=== PATIENT | male | born 1985 | race Caucasian/White ===

== ENCOUNTER 2017-01-01 05:51 | Emergency (ER) | payer OTHER ==
[2017-01-01 06:35] LABS: BASOPHIL# 0.3 X 10^3uL (0.0-0.1); BASOPHILS 2.3 % (0.0-2.0); EOSINOPHILS 0.4 % (0.0-6.0); EOSINOPHILS# 0.1 X 10^3uL (0.0-0.4); HEMATOCRIT 45.8 % (42.0-54.0); HEMOGLOBIN 15.6 g/dL (14.0-18.0); LYMPHOCYTES 17.4 % (20.0-40.0); LYMPHOCYTES# 2.4 X 10^3uL (0.8-3.8); MEAN CELL VOLUME 78.8 fL (80.0-100.0); MEAN CORPUS. HGB CONCENTRATION 34.1 g/dL (32.0-36.0); MEAN CORPUSCULAR HEMOGLOBIN 26.9 pg (29.0-35.0); MEAN PLATELET VOLUME 8.4 fL (7.4-10.4); MONOCYTES 9.2 % (2.0-10.0); MONOCYTES# 1.3 X 10^3uL (0.2-1.0); NEUTROPHILS 70.7 % (54.0-75.0); NEUTROPHILS# 9.8 X 10^3uL (2.6-6.7); PLATELET COUNT 261 X 10^3uL (130-440); RED BLOOD COUNT 5.81 X 10^6uL (4.20-6.10); RED CELL DISTRIBUTION WIDTH 13.2 % (11.5-14.5); WHITE BLOOD COUNT 13.9 X 10^3uL (3.9-10.7)
[2017-01-01] MEDS ORDERED: ONDANSETRON HCL 4 MG/2 ML VIAL ONE (06:39)
[2017-01-01] MEDS ORDERED: KETOROLAC TROMETHAMINE 30 MG/ML VIAL ONE (06:39)
[2017-01-01] MEDS ORDERED: DEXAMETHASONE 10 MG/ML VIAL ONE (06:40)
[2017-01-01 06:45] LABS: A/G RATIO 1.1; ALKALINE PHOSPHATASE 75 U/L (38-126); ALT 51 U/L (21-72); AST 27 U/L (17-59); BILIRUBIN, TOTAL 0.4 mg/dL (0.2-1.3); BLOOD UREA NITROGEN 20 mg/dL (9-20); CHLORIDE 104 mmol/L (98-107); EST GLOMERULAR FILTRATION RATE > 60 mL/min; GLUCOSE 142 mg/dL (70-100); POTASSIUM 3.8 mmol/L (3.5-5.1); SODIUM 142 mmol/L (137-145); TOTAL PROTEIN 7.5 g/dL (6.3-8.2)
--- NOTE | 2017-01-01 06:46 | RADIOLOGY REPORT ---
HISTORY: Shortness of breath COMPARISON: None. FINDINGS: 1 view of the chest obtained. There are patchy infiltrates throughout both lungs. There is no pleural effusion or pneumothorax. Cardiac silhouette is borderline enlarged. Mediastinal contours are within normal limits. Osseous structures are unremarkable. IMPRESSION: Patchy infiltrates throughout both lungs could represent pulmonary edema or atypical pneumonia. Consi margarita further evaluation with CT of the chest. Final Electronic Signature: This report was electronically signed by Vic Fleming MD on 01/01/2017 6 :44 AM. [email or web address] /
[2017-01-01] MEDS ORDERED: NIFEDIPINE 10 MG PO ONE (06:48)
[2017-01-01 06:57] LABS: TROPONIN I 0.018 ng/mL (0.00-0.034)
--- NOTE | 2017-01-01 10:09 | CT REPORT ---
HISTORY: Shortness of breath, hypoxia and headache. COMPARISON: None. TECHNIQUE: This examination was performed using automated exposure control, adjustment of mA or kV according to patient size, and/or use of iterative reconstruction technique. Axial CT imaging from the thoracic i nlet through the upper abdomen following administration of IV contrast during peak opacification of t he pulmonary arteries, multiplanar reformatted and 3-D images are evaluated. 100cc Isovue 300 contrast. FINDINGS: Pulmonary arteries: CT angiography demonstrates no filling defect within the pulmonary arteries to staley ggest acute pulmonary embolus. There is relatively poor opacification of the subsegmental arteries w ith contrast due to respiratory motion artifact.The main pulmonary artery is normal in caliber. Lungs: The lungs are normally inflated. Evaluation of both lungs is technically suboptimal secondary to respiratory motion artifact. There are centrilobular, somewhat nodular, poorly defined foci of air space consolidation and groundglass opacity in the upper lobes bilaterally and diffuse alveolar groun dglass opacity with superimposed central lobular foci of airspace consolidation in the lower lobes bi laterally, right greater than left. There is no evidence of interlobular septal thickening or archite ctural distortion. Airways: The major airways are patent. There is no evidence of bronchiectasis or endobronchial lesion . Pleura: There is no evidence of pleural effusion or pneumothorax. Mediastinum: The heart is not enlarged. There is no mediastinal, hilar or axillary lymphadenopathy. T he heart is not enlarged. There is mild coronary calcification. Abdomen: The visualized abdominal viscera appear unremarkable. Bones: The bones are normally mineralized and aligned. IMPRESSION: No evidence of acute pulmonary embolus. Suboptimal opacification of the subsegmental arteries due to respiratory motion artifact. Poorly defined, centrilobular nodular opacities with associated groundglass opacities in the upper lo wer lobes bilaterally, most severely affecting the right lower lobe, without associated interlobular septal thickening or architectural distortion. The appearance is most consistent with high altitude p ulmonary edema. Other types of pulmonary edema or community-acquired pneumonia could have this appear ance. Critical results were communicated to Dr. Jeronimo Yoo at 10:06 AM on 01/01/2017. Final Electronic Signature: This report was electronically signed by Harpreet Coleman MD on 01/02/20 17 10:07 AM. [email or web address] /
--- NOTE | 2017-01-01 11:56 | ER PHYSICIAN DOCUMENTATION ---
Physician Documentation [facility] Name:Carl Kaye Age:31 yrs Sex:Male :1985 Arrival Date:01/01/2017 Time:05:51 Bed4 Private MD: Sung Nixon Disposition: 01/01 11:06 Critical Care: not applicable. tl1 11:13 Chart complete. tl1 Disposition: 01/01/17 11:08 Transfer ordered to [facility]. Diagnosis is Acute Pulmonary Edema. - Reason for transfer: Specialty. - Accepting physician is Memo Chong. - Condition is Fair. - Problem is new. - Symptoms have improved. COBRA Form completed? Yes Transfer - Mode of Transportation Ambulance HPI: 05:57 This 31 yrs old Male presents to ER with complaints of Shortness Of Breath, tl1 Headache. 05:57 He took a bus up here from [place] 2 days ago to be a groomsman in a wedding last tl1 night developed h/a and some dyspnea. The dyspnea was such that he felt like he needed to come to the ED. He thinks he may have sleep apnea, but has not been tested for that. Denies recent cough, f/c/s. Never a smoker. Works in IT as a it network architect.. Historical: - Allergies: No known drug Allergies; - Home Meds: 1. None - PMHx: None; - PSHx: None; - Tetanus: < 10 years. - Ebola Screening: : Patient denies exposure to infectious person. Patient denies travel to an Ebola-affected area in the 21 days before illness onset. . - Immunization history: Pneumococcal vaccine status is unknown, Flu Vaccine None Flu Vaccine None. - Social history: Smoking status: Patient states was never smoker of tobacco. Patient uses alcohol only on a social basis. - Code Status:: Full code. ROS: 10:54 Respiratory: Positive for dyspnea on exertion, shortness of breath. tl1 10:54 All other systems are negative. Exam: 10:55 Constitutional: The patient appears alert, awake, anxious, restless, uncomfortable. tl1 10:55 Head/face: Exam is negative for 10:55 ENT: Exam is negative for acute changes. 10:55 Chest/axilla: Exam negative for acute changes. 10:55 Cardiovascular: Rate: tachycardic, Rhythm: regular, Heart sounds: normal, Edema: is not appreciated, JVD: is not appreciated. 10:55 Respiratory: mild respiratory distress is noted, Respirations: labored breathing, that is mild, Breath sounds: rales, are not appreciated, rhonchi, are heard diffusely, wheezing, is not appreciated. 10:55 Abdomen/GI: Inspection: abdomen appears normal, Palpation: abdomen is soft and non-tender. 10:55 Musculoskeletal/extremity: Exam is negative for acute changes. 10:55 Skin: Exam negative for acute changes. 10:55 Neuro: Exam negative for acute changes, Orientation: is normal, Mentation: is normal, Cranial nerves: grossly normal, Motor: moves all fours. Vital Signs: 06:17 BP 150 / 84; Pulse 141; Resp 18; Temp 98.6; Pulse Ox 45% on R/A; Weight 136.08 kg; lb Height 5 ft. 8 in. (172.72 cm); Pain 0/10; 06:52 BP 136 / 91; Pulse 120; Resp 18; Pulse Ox 94% on 5 lpm NC; lb 07:00 BP 147 / 76; Pulse 114; Resp 20; Pulse Ox 93% on 6 lpm NC; lp 07:30 BP 127 / 92; Pulse 113; Resp 20; Pulse Ox 92% on 6 lpm NC; lp 08:00 BP 137 / 71; Pulse 107; Resp 20; Pulse Ox 91% on 6 lpm NC; lp 08:30 BP 146 / 65; Pulse 114; Resp 18; Pulse Ox 92% on 4 lpm NC; lp 08:40 BP 131 / 60; Pulse 109; Pulse Ox 87% on 4 lpm NC; lp 08:50 BP 124 / 67; Pulse 117; Resp 16; Pulse Ox 94% on 4 lpm NC; lp 09:09 Pulse Ox 89% ; lp 09:11 BP 136 / 66; Pulse 111; Resp 18; Pulse Ox 92% on 4 lpm NC; lp 09:20 BP 153 / 73; Pulse 108; Resp 20; Pulse Ox 91% on 5 lpm NC; lp 10:00 BP 128 / 84; Pulse 115; Resp 18; Pulse Ox 96% on 5 lpm NC; lp 10:30 BP 124 / 82; Pulse 114; Resp 18; Pulse Ox 96% on 5 lpm NC; lp 11:00 BP 192 / 72; Pulse 120; Resp 22; Pulse Ox 97% on CPAP; lp 11:30 BP 143 / 93; Pulse 115; Resp 20; Pulse Ox 96% on CPAP; lp 06:17 Body Mass Index 45.61 (136.08 kg, 172.72 cm) lb MDM: 05:53 Patient medically screened. tl1 05:59 Patient medically screened. tl1 06:34 Differential diagnosis: Anemia Anxiety Reaction asthma, Bronchitis CHF exacerbation, tl1 Chronic Obstructive Pulmonary Disease Myocardial Infarction pneumonia, Pneumothorax pulmonary edema, Pulmonary Embolism reactive airway disease, Unstable Angina. Antibiotic administration: Not indicated. The patient's Wells Deep Vein Thrombosis Score was calculated as follows: No Risks (0 Pts). Data reviewed: vital signs, nurses notes, lab test result(s), EKG, radiologic studies, and as a result, I will discharge patient. Data interpreted: Pulse oximetry: on room air is 45 %. Test interpretation: by ED physician or midlevel provider: plain radiologic studies, ECG. Counseling: I had a detailed discussion with the patient and/or guardian regarding: the historical points, exam findings, and any diagnostic results supporting the discharge/admit diagnosis, lab results, radiology results, the need for outpatient follow up, to return to the emergency department if symptoms worsen or persist or if there are any questions or concerns that arise at home. ECG:. 06:42 EKG attached lb 11:09 Response to treatment: the patient's symptoms have markedly improved after treatment, tl1 and as a result, I will admit patient. Physician consultation: Manuel Ludwig was called at 10:30, was contacted at 10:35, regarding patient's condition, after a discussion of the case, a recommendation for transfer for higher level of care is made. ED course: Initially treated with nifedipine, O2 at 6 LPM, THEN CPAP with gradual but insufficient improvement. CTPA was negative for PE AND c/w HAPE. Discussed with barrel rib matting machine operator, Dr Ludwig and then transferred to the care of Dr Chong, hospitalist at [facility].. 01/01 06:52 Order name: CBC AUTO DIF, MDIF/RMOR IF IND; Complete Time: 09:08 EDMS 01/01 09:07 Interpretation: Normal Except: WHITE BLOOD COUNT 13.9; HEMOGLOBIN 15.6; HEMATOCRIT tl1 45.8; PLATELET COUNT 261; NEUTROPHILS 70.7; LYMPHOCYTES 17.4. 01/01 06:59 Order name: COMPREHENSIVE METABOLIC PANEL; Complete Time: 09:08 EDMS 01/01 09:08 Interpretation: Normal Except: GLUCOSE 142. tl1 01/01 06:59 Order name: BNP,NT-PRO; Complete Time: 09:08 EDMS 01/01 09:08 Interpretation: Abnormal: BNP,NT-PRO 614. tl1 01/01 06:59 Order name: TROPONIN I; Complete Time: 09:08 EDMS 01/01 09:08 Interpretation: TROPONIN I 0.018. tl1 01/01 07:06 Order name: DDIMER; Complete Time: 09:08 EDMS 01/01 09:08 Interpretation: Normal: DDIMER 224. tl1 01/01 06:31 Order name: CHEST SINGLE VIEW [id number] EDMS 01/01 06:48 Order name: CHEST; SINGLE VIEW [id number]; Complete Time: 09:08 EDMS 01/01 09:58 Order name: CAT SCAN CHEST ANGIO [id number] EDMS 01/01 10:11 Order name: CAT SCAN; CHEST ANGIO [id number] EDMS 01/01 05:57 Order name: Oxygen; Complete Time: 06:22 tl1 01/01 06:16 Order name: EKG - 12 Lead; Complete Time: 06:38 tl1 Dispensed Medications: 06:21 Drug: NS 0.9% 1000 ml; Route: IV; Rate: bolus; Site: right antecubital; fc 07:45 Follow up: Response: No adverse reaction; No change in condition; IV Status: Completed lp infusion; IV Intake: 1000ml 06:37 Drug: Zofran 8 mg; Route: IVP; Infused Over: 2 mins; Site: right antecubital; lb 07:00 Follow up: Response: Nausea is decreased lp 06:38 Drug: Decadron 10 mg IVP - Dexamethasone 10 mg; Route: IVP; Site: right antecubital; lb 07:00 Follow up: Response: No adverse reaction; No change in condition lp 06:38 Drug: Toradol 15 mg; Route: IVP; Site: right antecubital; lb 07:00 Follow up: Response: Pain is decreased lp 06:41 Drug: NIFEdipine 10 mg; Route: PO; fc 07:40 Follow up: Response: No adverse reaction; No change in condition lp Signatures: Shannon Velarde RN RN lp Sung Yoo MD MD tl1 mary anne smith fc Suki Carpenter
--- NOTE | 2017-01-01 11:56 | ER NURSING DOCUMENTATION ---
Nurse's Notes [facility] Name:Carl Kaye Age:31 yrs Sex:Male :1985 Arrival Date:01/01/2017 Time:05:51 Bed4 Private MD: Diagnosis:Acute Pulmonary Edema Presentation: 01/01 06:04 Acuity: KAYLEE 2 lb 06:15 Presenting complaint: Patient states: short of breath, cough, mild nausea for 1 day. lb Transition of care: patient was not received from another setting of care. Notified ED Physician of Dr. Yoo notified. 06:15 Method Of Arrival: Walk In lb Triage Assessment: 06:16 General: Appears in no apparent distress, Behavior is appropriate for age. Pain: Denies lb pain. Respiratory: Airway is patent Trachea midline Respiratory effort is even, Breath sounds with rhonchi in left posterior lower lobe Reports shortness of breath on exertion Onset: The symptoms/episode began/occurred yesterday, the patient has moderate shortness of breath. Historical: - Allergies: No known drug Allergies; - Home Meds: 1. None - PMHx: None; - PSHx: None; - Tetanus: < 10 years. - Ebola Screening: : Patient denies exposure to infectious person. Patient denies travel to an Ebola-affected area in the 21 days before illness onset. . - Immunization history: Pneumococcal vaccine status is unknown, Flu Vaccine None Flu Vaccine None. - Social history: Smoking status: Patient states was never smoker of tobacco. Patient uses alcohol only on a social basis. - Code Status:: Full code. Screenin:18 Infectious Disease Risk None. Abuse screen: Denies threats or abuse. Denies injuries lb from another. Nutritional screening: No deficits noted. Assessment: 06:18 See Triage Assessment done by same RN. Cardiovascular: Rhythm is sinus tachycardia. lb Vital Signs: 06:17 BP 150 / 84; Pulse 141; Resp 18; Temp 98.6; Pulse Ox 45% on R/A; Weight 136.08 kg; lb Height 5 ft. 8 in. (172.72 cm); Pain 0/10; 06:52 BP 136 / 91; Pulse 120; Resp 18; Pulse Ox 94% on 5 lpm NC; lb 07:00 BP 147 / 76; Pulse 114; Resp 20; Pulse Ox 93% on 6 lpm NC; lp 07:30 BP 127 / 92; Pulse 113; Resp 20; Pulse Ox 92% on 6 lpm NC; lp 08:00 BP 137 / 71; Pulse 107; Resp 20; Pulse Ox 91% on 6 lpm NC; lp 08:30 BP 146 / 65; Pulse 114; Resp 18; Pulse Ox 92% on 4 lpm NC; lp 08:40 BP 131 / 60; Pulse 109; Pulse Ox 87% on 4 lpm NC; lp 08:50 BP 124 / 67; Pulse 117; Resp 16; Pulse Ox 94% on 4 lpm NC; lp 09:09 Pulse Ox 89% ; lp 09:11 BP 136 / 66; Pulse 111; Resp 18; Pulse Ox 92% on 4 lpm NC; lp 09:20 BP 153 / 73; Pulse 108; Resp 20; Pulse Ox 91% on 5 lpm NC; lp 10:00 BP 128 / 84; Pulse 115; Resp 18; Pulse Ox 96% on 5 lpm NC; lp 10:30 BP 124 / 82; Pulse 114; Resp 18; Pulse Ox 96% on 5 lpm NC; lp 11:00 BP 192 / 72; Pulse 120; Resp 22; Pulse Ox 97% on CPAP; lp 11:30 BP 143 / 93; Pulse 115; Resp 20; Pulse Ox 96% on CPAP; lp 06:17 Body Mass Index 45.61 (136.08 kg, 172.72 cm) lb ED Course: 05:52 Patient arrived in ED. ma1 05:53 Sung Yoo MD is Attending Physician. tl1 06:04 Suki Carpenter is Primary Nurse. lb 06:13 Triage completed. lb 06:18 Valuables Remains with patient Call light in reach. lb 06:18 Oxygen Oxygen administration via nasal cannula @ 4L/min. lb 06:30 Inserted peripheral IV: 20 gauge in right antecubital area. lp 06:32 Port Xray Completed. ms 06:38 EKG done per protocol. Performed by ED Staff. X-ray done. lb 06:42 EKG attached lb 09:[address] ms 09:54 Patient moved back from CT. ms 09:55 Patient placed on CPAP Expiratory pressure 8cm of H2O. kr 10:10 Assist ventilation Cpap started at 0955. Pt tolerating well. O2 sat sat 98%. HR 121. kr 11:10 Patient placed on CPAP Expiratory pressure 5cm of H2O. kr Administered Medications: 06:21 Drug: NS 0.9% 1000 ml; Route: IV; Rate: bolus; Site: right antecubital; fc 07:45 Follow up: Response: No adverse reaction; No change in condition; IV Status: Completed lp infusion; IV Intake: 1000ml 06:37 Drug: Zofran 8 mg; Route: IVP; Infused Over: 2 mins; Site: right antecubital; lb 07:00 Follow up: Response: Nausea is decreased lp 06:38 Drug: Decadron 10 mg IVP - Dexamethasone 10 mg; Route: IVP; Site: right antecubital; lb 07:00 Follow up: Response: No adverse reaction; No change in condition lp 06:38 Drug: Toradol 15 mg; Route: IVP; Site: right antecubital; lb 07:00 Follow up: Response: Pain is decreased lp 06:41 Drug: NIFEdipine 10 mg; Route: PO; fc 07:40 Follow up: Response: No adverse reaction; No change in condition lp Intake: 07:45 IV: 1000ml; Total: 1000ml. lp Outcome: 11:08 ER care complete, transfer ordered by MD. junior 11:47 [facility] Condition: stable 11:47 Report given to Report given to Mala in PCU at [facility] 11:47 Instructed on need for transfer 11:54 Patient left the ED. lp Signatures: Shannon Velarde RN RN lp Strickland, Mary ms Leigh, Tom, MD MD tl1 Isabell Armijo floyd fc Bollock, Lynda lb Addison, Melissa ma1
== END 2017-01-01 11:55 | disposition short-term general hospital (02) ==
LOC: ER 05:51
DX: J81.0 Acute pulmonary edema (principal); R51 Headache; R00.0 Tachycardia, unspecified; I44.5 Left posterior fascicular block; Z99.81 Dependence on supplemental oxygen; Z74.3 Need for continuous supervision
CPT/HCPCS: 71010; 71275; 80053; 83880; 84484; 85025; 85379; 93005; 96361; 96374; 96375; 99291; J1100; J1885; J2405